=== PATIENT | female | born 1955 | race Asian ===

== ENCOUNTER 2018-09-12 20:14 | Emergency (ER) | payer OTHER ==
[~2018-09-12] VITALS: Ht 152.4 cm; Wt 47.6 kg
[2018-09-12 20:36] LABS: PLATELET COUNT 194 K/uL (152-353)
[2018-09-12 20:44] LABS: POTASSIUM 3.3 mmol/L (3.6-5.2)
[2018-09-12 23:28] VITALS: BP 142/67; TEMP 97.7
[2018-09-13] MEDS ORDERED: UNITH DIRECT75 MCG PO (01:05)
[2018-09-13] MEDS ORDERED: BENZTROPINE2 MG PO (01:09)
[2018-09-13] MEDS ORDERED: DAILY VITE PO (01:10)
[2018-09-13] MEDS ORDERED: DIVA125C PO (01:11)
[2018-09-13] MEDS ORDERED: HALO50IN4 IM (01:19)
[2018-09-13] MEDS ORDERED: MOBIC15 MG PO (01:20)
[2018-09-13] MEDS ORDERED: RANI150T78 PO (01:22)
[2018-09-13] MEDS ORDERED: SEROQUEL50 MG PO (01:23)
[2018-09-13] MEDS ORDERED: THIA100T8 PO (01:25)
[2018-09-13] MEDS ORDERED: RISP1TAB PO (01:25)
[2018-09-13] MEDS ORDERED: MAPAP325 MG PO (01:28)
[2018-09-13] MEDS ORDERED: MAGNSUS68 PO (01:29)
== END 2018-09-12 23:31 | disposition still patient (30) ==
LOC: ED 20:14
PROVIDERS: Internal Medicine
DX: F20.0 Paranoid schizophrenia (principal); E87.6 Hypokalemia; E03.8 Other specified hypothyroidism; Z04.6 Encounter for general psychiatric examination, requested by authority
CPT/HCPCS: 36415; 80053; 81000; 85027; 93005; 99285